=== PATIENT | male | born 1990 | race Caucasian/White ===

== ENCOUNTER 2022-11-04 18:36 | Emergency (ER) | payer OTHER ==
[~2022-11-04] VITALS: Ht 182.9 cm; Wt 77.1 kg
[2022-11-04 19:03] VITALS: BP 140/106
--- NOTE | 2022-11-04 20:52 | NUR ---
PER ADMITTING PT [facility]
== END 2022-11-04 20:52 | disposition left against medical advice (07) ==
LOC: MED 18:36
DX: R10.9 Unspecified abdominal pain (principal); R11.2 Nausea with vomiting, unspecified; Z53.21 Procedure and treatment not carried out due to patient leaving prior to being seen by health care provider
CPT/HCPCS: 99281